=== PATIENT | male | born 1980 | race African-American/Black ===

== ENCOUNTER 2017-08-06 11:39 | Emergency (ER) | payer OTHER ==
[~2017-08-06] VITALS: Ht 182.9 cm; Wt 113.4 kg
[2017-08-06 11:40] VITALS: BP 151/90
== END 2017-08-06 12:47 | disposition home or self-care (01) ==
LOC: ER 11:40
DX: M54.5 Low back pain (principal); M51.26 Other intervertebral disc displacement, lumbar region; Z88.0 Allergy status to penicillin; Z88.8 Allergy status to other drugs, medicaments and biological substances
CPT/HCPCS: A4606; Z7610